=== PATIENT | male | born 1960 ===

== ENCOUNTER 2017-02-13 07:53 | Day surgery (SDC) | payer OTHER ==
[2017-02-13] MEDS ORDERED: Propofol 10 mg/ml Inj (20 ML) ONE ×2 (11:19→11:28)
[2017-02-13] MEDS ORDERED: Lidocaine Hydrochloride 5 ML INJ ONE (11:28)
[2017-02-13 12:10] VITALS: O2SAT 100
[2017-02-13 13:27] VITALS: BP 149/91; PULSE 52; RESP 19; TEMP 97
== END 2017-02-13 13:25 | disposition home or self-care (01) ==
LOC: C.ENDO 07:53
PROVIDERS: ATTEND Internal Medicine
DX: K92.1 Melena (principal); D12.7 Benign neoplasm of rectosigmoid junction; D12.5 Benign neoplasm of sigmoid colon; K57.30 Diverticulosis of large intestine without perforation or abscess without bleeding; K62.5 Hemorrhage of anus and rectum; K59.03 Drug induced constipation; R10.9 Unspecified abdominal pain
CPT/HCPCS: 45380; 88305; J2704

== ENCOUNTER 2017-02-25 15:26 | Emergency (ER) | payer OTHER ==
[2017-02-25 15:35] VITALS: BMI 21.4
[2017-02-25 15:42] VITALS: BP 110/73; PULSE 70; RESP 20; TEMP 97.6; O2SAT 100
--- NOTE | 2017-02-25 15:55 | C.PDOC ---
Time Seen by Provider: 02/25/17 15:51 Chief Complaint (Nursing): Lower Extremity Problem/Injury Past Medical History Vital Signs: Last Vital Signs Temp 97.6 F 02/25/17 15:35 Pulse 70 02/25/17 15:35 Resp 20 02/25/17 15:35 BP 110/73 02/25/17 15:35 Pulse Ox 100 02/25/17 15:35 - Medical History PMH: Asthma, Back Problems, COPD, Depression, Fractures (ROCKY. ANKLES AND FEET. FELL 3 STORIES OFF SCAFFOLDING), HTN, Post Traumatic Stress Disorder Denies: Colonic Polyps, Seizures, Sleep Apnea, TIA Surgical History: Denies: Endoscopy Family History: States: Unknown Family Hx - Social History Hx Tobacco Use: Yes Hx Alcohol Use: No Hx Substance Use: Yes - Immunization History Hx Tetanus Toxoid Vaccination: No Hx Influenza Vaccination: No Hx Pneumococcal Vaccination: No ED Course And Treatment O2 Sat by Pulse Oximetry: 100 Disposition - Disposition Forms: [employer] (Thai)
--- NOTE | 2017-02-25 15:56 | C.PDOC ---
History Of Present Illness 56 year old male presents to the ED complaining of left foot pain. States that he slid in shower this morning, and hit his foot against marble. Patient is now complaining of pain to the left 2nd toe and across the dorsum of the foot PMD: Dr. Suleman Tan Time Seen by Provider: 02/25/17 15:51 Chief Complaint (Nursing): Lower Extremity Problem/Injury History Per: Patient History/Exam Limitations: no limitations Current Symptoms Are (Timing): Still Present Past Medical History Reviewed: Historical Data, Nursing Documentation, Vital Signs Vital Signs: Last Vital Signs Temp 97.6 F 02/25/17 15:35 Pulse 70 02/25/17 15:35 Resp 20 02/25/17 15:35 BP 110/73 02/25/17 15:35 Pulse Ox 100 02/25/17 15:59 - Medical History PMH: Asthma, Back Problems, COPD, Depression, Fractures (ROCKY. ANKLES AND FEET. FELL 3 STORIES OFF SCAFFOLDING), HTN, Post Traumatic Stress Disorder Denies: Colonic Polyps, Seizures, Sleep Apnea, TIA Surgical History: Denies: Endoscopy Other Surgeries: Ankle and feet surgery Family History: States: Unknown Family Hx - Social History Hx Tobacco Use: Yes Hx Alcohol Use: No Hx Substance Use: Yes - Immunization History Hx Tetanus Toxoid Vaccination: No Hx Influenza Vaccination: No Hx Pneumococcal Vaccination: No Review Of Systems Except As Marked, All Systems Reviewed And Found Negative. Musculoskeletal: Positive for: Foot Pain (left) Physical Exam - Physical Exam Appears: Non-toxic, No Acute Distress Skin: Warm, Dry, Ecchymosis (from left 2nd toe across dorsum) Head: Atraumatic, Normacephalic Eye(s): bilateral: Normal Inspection, PERRL, EOMI Nose: Normal Neck: Normal, Normal ROM Extremity: Tenderness (from left 2nd toe across the dorsum of left foot), Capillary Refill (< 2 sec) Pulses: Left Dorsalis Pedis: Normal, Right Dorsalis Pedis: Normal Neurological/Psych: Oriented x3, Normal Speech ED Course And Treatment O2 Sat by Pulse Oximetry: 100 (RA) Pulse Ox Interpretation: Normal - Other Rad left foot X-Ray: Interpreted by Me Interpretation: Xray shows small fracture on the proximal phalanx over the PIP joint. Progress Note: Toes are carolann tapped. Reevaluation Time: 16:46 Reassessment Condition: Improved Medical Decision Making Medical Decision Making: Time: 15:52 Initial Impression: 56 year old male with foot and toe pain Initial Plan: * X-Ray Left Foot * Reevaluation Disposition Counseled Patient/Family Regarding: Studies Performed, Diagnosis, Need For Followup - Disposition Referrals: [facility] [Outside] Disposition: HOME/ ROUTINE Disposition Time: 16:47 Condition: STABLE Additional Instructions: Take the pain medication you have at home if needed. Instructions: Toe Fracture (ED) Forms: [employer] (Romansh) - Clinical Impression Clinical Impression: Fracture of toe of left foot - Scribe Statement The provider has reviewed the documentation as recorded by the Scriborlando Burnham All medical record entries made by the Feriborlando were at my direction and personally dictated by me. I have reviewed the chart and agree that the record accurately reflects my personal performance of the history, physical exam, medical decision making, and the department course for this patient. I have also personally directed, reviewed, and agree with the discharge instructions and disposition.
--- NOTE | 2017-02-25 18:25 | RAD ---
PROCEDURE: Left Foot Radiographs. HISTORY: injury COMPARISON: None. FINDINGS: BONES: No fracture or destructive bony lesion appreciated. Deformity of the hindfoot is appreciate status post open reduction internal fixation of a calcaneal fracture with advanced degenerative changes seen at the subtalar joint posteriorly. Compression plate is identified with multiple compression screws with a fracture of an anterior compression screw noted. No subluxation or dislocation identified. JOINTS: Degenerative joint disease seen mildly throughout the forefoot midfoot and upper hindfoot joints diffusely. SOFT TISSUES: Normal. OTHER FINDINGS: None. IMPRESSION: No acute fracture dislocation. Status post ORIF for calcaneal fracture with advanced degenerative change seen at the posterior subtalar joint and lesser degenerative changes seen otherwise throughout the remainder of the left foot.
== END 2017-02-25 16:56 | disposition home or self-care (01) ==
LOC: C.ER 15:26
DX: S92.512A Displaced fracture of proximal phalanx of left lesser toe(s), initial encounter for closed fracture (principal); W22.8XXA Striking against or struck by other objects, initial encounter; I10 Essential (primary) hypertension; J44.9 Chronic obstructive pulmonary disease, unspecified; Z87.891 Personal history of nicotine dependence

== ENCOUNTER 2017-02-27 12:33 | Emergency (ER) | payer OTHER ==
[2017-02-27 12:33] VITALS: BMI 21.4
[2017-02-27 12:53] VITALS: RESP 18; O2SAT 99
[2017-02-27 13:55] VITALS: BP 148/96; PULSE 70; TEMP 97.6
--- NOTE | 2017-02-27 16:15 | C.PDOC ---
History Of Present Illness 56 y/o male presents to ED with complaints of right shoulder pain status post fall 2 days ago. Patient came to ED yesterday for evaluation and was diagnosed with toe fracture. At ED patient is requesting percocet and denies decreased rom , change in sensation or any other complaints at this time. Chief Complaint (Nursing): Upper Extremity Problem/Injury History Per: Patient History/Exam Limitations: no limitations Onset/Duration Of Symptoms: Days Current Symptoms Are (Timing): Still Present Quality: "Pain" Past Medical History Reviewed: Historical Data, Nursing Documentation, Vital Signs Vital Signs: Last Vital Signs Temp 97.6 F 02/27/17 13:54 Pulse 70 02/27/17 13:54 Resp 18 02/27/17 13:54 BP 148/96 H 02/27/17 13:54 Pulse Ox 99 02/27/17 16:15 - Medical History PMH: Asthma, Back Problems, COPD, Depression, Fractures (ROCKY. ANKLES AND FEET. FELL 3 STORIES OFF SCAFFOLDING), HTN, Post Traumatic Stress Disorder Surgical History: No Surg Hx Family History: States: No Known Family Hx - Social History Hx Tobacco Use: Yes Hx Alcohol Use: No Hx Substance Use: Yes - Immunization History Hx Tetanus Toxoid Vaccination: No Hx Influenza Vaccination: No Hx Pneumococcal Vaccination: No Review Of Systems Gastrointestinal: Negative for: Nausea, Vomiting Musculoskeletal: Positive for: Shoulder Pain. Negative for: Arm Pain, Back Pain Skin: Negative for: Rash Neurological: Negative for: Weakness, Numbness Physical Exam - Physical Exam Appears: Non-toxic, No Acute Distress Skin: Normal Color, Warm, Dry, No Rash Head: Atraumatic, Normacephalic Eye(s): bilateral: Normal Inspection Oral Mucosa: Moist Neck: Supple Extremity: No Tenderness, Capillary Refill (<2 seconds), No Deformity, No Swelling Extremity: Bilateral: Normal ROM Pulses: Left Radial: Normal, Right Radial: Normal Neurological/Psych: Oriented x3, Normal Motor, Normal Sensation ED Course And Treatment O2 Sat by Pulse Oximetry: 99 (RA) Pulse Ox Interpretation: Normal Disposition - Disposition Referrals: Blade Ramos, [Non-Staff] - Disposition: HOME/ ROUTINE Disposition Time: 13:30 Condition: GOOD Additional Instructions: Thank you for letting us take care of you today. The emergency medical care you received today was directed at your acute symptoms. If you were prescribed any medication, please fill it and take as directed. It may take several days for your symptoms to resolve. Return to the Emergency Department if your symptoms worsen, do not improve, or if you have any other problems. Please contact your doctor or call one of the physicians/clinics you have been referred to that are listed on the Patient Visit Information form that is included in your discharge packet. Bring any paperwork you were given at discharge with you along with any medications you are taking to your follow up visit. Our treatment cannot replace ongoing medical care by a primary care provider (PCP) outside of the emergency department. Thank you for allowing the [facility] team to be part of your care today. Follow up with your doctor in 2-3 days for re-evaluation and pain management. Instructions: Musculoskeletal Pain (ED) Forms: [employer] (Sinhala) - Clinical Impression Clinical Impression: Musculoskeletal pain - Scribe Statement The provider has reviewed the documentation as recorded by the Feriborlando Tao All medical record entries made by the Scribe were at my direction and personally dictated by me. I have reviewed the chart and agree that the record accurately reflects my personal performance of the history, physical exam, medical decision making, and the department course for this patient. I have also personally directed, reviewed, and agree with the discharge instructions and disposition.
== END 2017-02-27 13:55 | disposition home or self-care (01) ==
LOC: C.ER 12:33
DX: M79.1 Myalgia (principal); I10 Essential (primary) hypertension; Z87.891 Personal history of nicotine dependence; J44.9 Chronic obstructive pulmonary disease, unspecified
CPT/HCPCS: 96372; 99284; J1885

== ENCOUNTER 2017-04-10 18:08 | Emergency (ER) | payer OTHER ==
[2017-04-10 18:09] VITALS: BMI 21.4
[2017-04-10 18:34] VITALS: BP 134/80; PULSE 68; RESP 18; TEMP 98.4; O2SAT 100
--- NOTE | 2017-04-10 20:11 | C.PDOC ---
History Of Present Illness 56 yr old male with history of chronic pain, on pain management, takes oxycontin 15mg, presents to the ER with complaints of pain to the right hip and radiating to the right leg. Patient states oxycontin is not helping this pain. Patient denies upper extremity pain as stated on the triage. Denies abdominal pain, dysuria, incontinence, weakness or numbness. Time Seen by Provider: 04/10/17 19:23 Chief Complaint (Nursing): Lower Extremity Problem/Injury History Per: Patient History/Exam Limitations: no limitations Onset/Duration Of Symptoms: Persistent Current Symptoms Are (Timing): Still Present Recent travel outside of the [place]: No Past Medical History Reviewed: Historical Data, Nursing Documentation, Vital Signs Vital Signs: Last Vital Signs Temp 98.4 F 04/10/17 18:30 Pulse 68 04/10/17 18:30 Resp 18 04/10/17 18:30 BP 134/80 04/10/17 18:30 Pulse Ox 100 04/10/17 21:27 - Medical History PMH: Asthma, Back Problems, COPD, Depression, Fractures (ROCKY. ANKLES AND FEET. FELL 3 STORIES OFF SCAFFOLDING), HTN, Post Traumatic Stress Disorder Family History: States: No Known Family Hx - Social History Hx Tobacco Use: Yes Hx Alcohol Use: No Hx Substance Use: Yes (marijuana) - Immunization History Hx Tetanus Toxoid Vaccination: No Hx Influenza Vaccination: No Hx Pneumococcal Vaccination: No Review Of Systems Except As Marked, All Systems Reviewed And Found Negative. Gastrointestinal: Negative for: Abdominal Pain Genitourinary: Negative for: Dysuria, Incontinence Musculoskeletal: Positive for: Other ((+) right hip pain radiating to the right leg) Neurological: Negative for: Weakness, Numbness Physical Exam - Physical Exam Appears: Non-toxic, No Acute Distress Skin: Warm, Dry, No Rash Oral Mucosa: Moist Respiratory: Normal Breath Sounds Back: Normal Inspection Extremity: No Calf Tenderness, Other (Right hip, mild limited ROM due to pain. ) Extremity: Right: Normal Color And Temperature Pulses: Left Dorsalis Pedis: Normal, Right Dorsalis Pedis: Normal Neurological/Psych: Oriented x3, Normal Speech, Normal Motor, Normal Sensation, Normal Reflexes ED Course And Treatment O2 Sat by Pulse Oximetry: 100 (RA) Pulse Ox Interpretation: Normal Reassessment Condition: Improved Medical Decision Making Medical Decision Making: PLAN: * Toradol IM NOTE: Patient iis fully ambulatory in ED, with some pain improvement. Pt is in a pain management for chromic , advised to follow up with pain management for further evaluation. 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 - Scribe Statement The provider has reviewed the documentation as recorded by the Scribe Ramila Shelby All medical record entries made by the Scribe were at my direction and personally dictated by me. I have reviewed the chart and agree that the record accurately reflects my personal performance of the history, physical exam, medical decision making, and the department course for this patient. I have also personally directed, reviewed, and agree with the discharge instructions and disposition.
== END 2017-04-10 20:40 | disposition home or self-care (01) ==
LOC: C.ER 18:08
DX: G89.29 Other chronic pain (principal)
CPT/HCPCS: 96372; 99284; J1885